=== PATIENT | male | born 1985 | race Caucasian/White ===

== ENCOUNTER 2017-04-25 01:03 | Emergency (ER) | payer SELFPAY ==
[2017-04-25] MEDS ORDERED: NO MEDICATIONS (01:22)
== END 2017-04-25 02:15 | disposition home or self-care (01) ==
LOC: SED 01:03
DX: J02.9 Acute pharyngitis, unspecified (principal); K02.9 Dental caries, unspecified; F17.210 Nicotine dependence, cigarettes, uncomplicated; Z88.1 Allergy status to other antibiotic agents; Z88.0 Allergy status to penicillin
CPT/HCPCS: 87651; 99283